=== PATIENT | male | born 1995 | race Native Hawaiian/Other Pacific Islander ===

== ENCOUNTER 2018-08-10 21:05 | Emergency (ER) | payer MEDICAID ==
[~2018-08-10] VITALS: Ht 175.3 cm; Wt 71.4 kg
[2018-08-10 21:23] VITALS: BP 134/89
[2018-08-11] MEDS ORDERED: ACETAMINOPHEN/CODEINE#3 (300/30mg) TAB PO ONE (02:45)
[2018-08-11] MEDS ORDERED: TETANUS-DIPTH-ACEL PERTUSSIS 0.5ML SYRG IM ONE (02:45)
[2018-08-11] MEDS ORDERED: BACLOFEN 10 MG TAB PO ONE (02:45)
== END 2018-08-11 03:44 | disposition home or self-care (01) ==
LOC: ER 21:05
DX: S00.83XA Contusion of other part of head, initial encounter (principal); R04.0 Epistaxis; Y04.0XXA Assault by unarmed brawl or fight, initial encounter; Y93.89 Activity, other specified; Y92.89 Other specified places as the place of occurrence of the external cause; Y99.8 Other external cause status
CPT/HCPCS: 70140; 70450; 90471; 90715